=== PATIENT | male | born 1995 | race Hispanic/Latino ===

== ENCOUNTER 2020-03-06 23:30 | Inpatient (IN) | payer OTHER ==
[~2020-03-06] VITALS: Ht 172.7 cm; Wt 63.1 kg
[2020-03-07] VITALS (11 sets, daily range): BP systolic 118–150; BP diastolic 57–102
--- NOTE | 2020-03-07 00:14 | ER.PDOC ---
General Chief Complaint: Requesting Medical Care Stated Complaint: DIFF BREATHING Time seen by MD: 23:50 Source: patient History of Present Illness Initial Comments two days of body aches with chest pain and feels short of breath, also has nausea and diarrhea. no known covid exposure, chest pain central chest and increased with movement. patient has no hx of dvt or pe or long trips or calf pain or swelling. no back or abd pain, no migratory pain no tearing or ripping pain. Timing/Duration: other Severity/Quality: moderate Radiation: no radiation Activities at Onset: none Prior CP/Workup: No Prior Chest Pain Nitro Today/Relief: No Nitro Taken Today Aspirin Today: No Aspirin Today Associated Symptoms: nausea/vomiting, other Constitutional: denies chills, denies fever Respiratory: shortness of breath Cardiovascular: chest pain; denies palpitations, denies syncope Gastrointestinal: denies abdominal pain; diarrhea, nausea Genitourinary: denies dysuria, denies flank pain Musculoskeletal: denies back pain, denies neck pain Skin: denies rash Psychiatric/Neurological: denies headache Physical Exam General Appearance: No Apparent Distress, WD/WN HEENT: PERRL/EOMI Neck: Non-Tender Respiratory: chest non-tender, lungs clear Cardiovascular: Normal Peripheral Pulses, Regular Rate, Rhythm Gastrointestinal: Non Tender Extremities: Normal Range of Motion, Non-Tender, Normal Inspection, No Pedal Edema Neurologic/Psychiatric: nurse emergency II-XII NML as Tested, No Motor/Sensory Deficits, Alert, Normal Mood/Affect, Oriented x 3 Skin: Normal Color Comments positive chest wall pain to palpation reproduced complaint. no calf pain or swelling. perc negative. Progress Progress discussed case with dr millard leather tooler for admission and dr marte for admission at 0224 Consult/PCP Time Consult/PCP Called: 02:22 Consult/PCP: freeman Reason/Comments: elevated troponin Departure Time of Disposition: 02:27 Disposition: 09 ADMITTED INPATIENT Impression: Primary Impression: Elevated troponin Condition: Critical Referrals: PCP,UNKNOWN (PCP) PRIMARY CARE PROVIDER Duration or Time Spent with Pa: ISRRAEL PEMBERTON MD Mar 07, 2020 00:14
--- NOTE | 2020-03-07 00:23 | PCM.EKG ---
[facility] Test Date: 2020-03-07 Test Time: 00:08:06 Pat Name: GAL NORMAN Department: Room: Gender: M Booth Manager: PRISCA : 1995 Requested By: ABDI ARTEAGA Order Number: [id number] Reading MD: Abdi Arteaga Measurements Intervals [place] Rate: 68 P: 28 FL: 152 QRS: -79 QRSD: 96 T: 54 QT: 385 QTc: 410 Interpretive Statements Sinus rhythm Left axis deviation No previous ECG available for comparison Electronically Signed On 03-07-2020 0:24:57 CDT by Abdi Arteaga Please click the below link to view image of tracing.
[2020-03-07] MEDS ORDERED: TORADOL IV ONE (00:30)
[2020-03-07 00:45] LABS: BASOPHIL % 0.4 % (0.0-0.2); EOSINOPHIL # 0.1 10^3/uL (0.0-0.2); EOSINOPHIL % 1.2 % (0.0-5.0); LYMPHOCYTES # 1.22 10^3/uL1 (1.0-4.8); LYMPHOCYTES % 16.5 % (24.0-44.0); MEAN CORP HGB 29.5 pg (26-34); MONOCYTES # 1.1 10^3/uL (0.3-0.8); MONOCYTES % 14.6 % (5.0-12.0); NEUTROPHILS % 66.9 % (41.0-85.0); PLATELET COUNT 200 10^3/uL (150-400); RED CELL DISTRIBUTION WIDTH 11.8 % (11.5-14.5)
--- NOTE | 2020-03-07 01:02 | DIREP ---
PROCEDURE:CHEST 1 VIEW COMPARISON:None. INDICATIONS:chest pain FINDINGS: LUNGS/PLEURA:No significant pulmonary parenchymal abnormalities. No effusions. VASCULATURE:Normal. Unremarkable pulmonary vasculature. CARDIAC:Normal. No cardiac silhouette abnormality or cardiomegaly. MEDIASTINUM:Normal. No visible mass or adenopathy. BONES:Normal. No fracture or visible bony lesion. OTHER:Negative. CONCLUSION:Normal examination. Dictated by: Brandon Cummings MD on 03/07/2020 at 00:59 AM
[2020-03-07 01:09] LABS: CALCIUM 9.4 mg/dL (8.4-10.5); CARBON DIOXIDE 26.8 mmol/L (20.0-32)
[2020-03-07] MEDS ORDERED: ASPIRIN PO STA (01:14)
[2020-03-07] MEDS ORDERED: NITRO-BID TD STA (01:14)
[2020-03-07] MEDS ORDERED: ASPIRIN ONE (01:28)
[2020-03-07] MEDS ORDERED: NITRO-BID TD ONE (01:28)
--- NOTE | 2020-03-07 02:04 | DIREP ---
PROCEDURE:CTA - CHEST (NON CORONARY) COMPARISON:None. INDICATIONS:chest pain with elevated troponin TECHNIQUE:After obtaining the patient's consent, CTA images were obtained without and with non-ionic intravenous contrast material. Multi-planar MIP/3-D images were created to optimize visualization of vascular anatomy. FINDINGS: VASCULATURE:Normal. No pulmonary emboli THORACIC AORTA:Normal. No aneurysm. No dissection LUNGS:Normal. Central airways are patent. Ground-glass opacities to indicate active pneumonitis are not identified MEDIASTINUM/CAITLYN:Normal. CARDIAC:Normal. No pericardial fluid. PLEURA:Normal. No effusion. No pneumothorax CHEST WALL:Normal. LIMITED ABDOMEN:Normal. BONES:Normal. OTHER:Normal. CONCLUSION:Normal examination Dictated by: Brandon Cummings MD on 03/07/2020 at 01:59 AM
--- NOTE | 2020-03-07 02:16 | NUR ---
ABBI MUÑOZ ON THE PHONE WITH DR. GO AT THIS TIME.
--- NOTE | 2020-03-07 02:23 | NUR ---
MAYA MUÑOZ ON PHONE WITH DR. TREJO AT THIS TIME.
[2020-03-07] MEDS ORDERED: HEPARIN-D5W 20,000 UNIT/500 ML 500 ML IV ONE (02:38)
--- NOTE | 2020-03-07 03:50 | NUR ---
HEPARIN DRIP PER DR GO NO BOLUS AND START AT 1000UNITS/HR, 25ML/HR. ORDER ENTERED IN [facility] PER DR NEWTON'S PROTOCOL
--- NOTE | 2020-03-07 03:50 | NUR ---
HEPARIN HEPARIN STARTED PER DR LOAIZA PROTOCOL. HEPARIN INFUSING @ 1000UNITS/HR.
--- NOTE | 2020-03-07 04:04 | NUR ---
TRANSPORTED PT TO [facility] VIA W/C, REPORT GIVEN TO Frankie SHETH RN. RELINQUISHED CARE.
--- NOTE | 2020-03-07 04:10 | NUR ---
Pt brought to unit via wc. Heparin infusing via pump at 500units/hr. Rechecked protocol and adjusted to 1000units with Desire GOLDBERG
--- NOTE | 2020-03-07 05:13 | NUR ---
Dr Templeton notified of no initial APTT done on pt. No order placed by ER prior to starting Heparin. Order received to draw APTT now and adjust Heparin per protocol.
[2020-03-07] MEDS: HEPARIN-D5W 20,000 UNIT/500 ML 500 ML IV SCH ×2 (05:19→21:01)
[2020-03-07 05:33] LABS: BASOPHIL % 0.5 % (0.0-0.2); EOSINOPHIL # 0.1 10^3/uL (0.0-0.2); EOSINOPHIL % 0.8 % (0.0-5.0); LYMPHOCYTES # 1.28 10^3/uL1 (1.0-4.8); LYMPHOCYTES % 20.9 % (24.0-44.0); MEAN CORP HGB 29.8 pg (26-34); MONOCYTES # 0.9 10^3/uL (0.3-0.8); MONOCYTES % 14.7 % (5.0-12.0); NEUTROPHIL # 3.8 10^3/uL (1.8-7.7); NEUTROPHILS % 62.8 % (41.0-85.0); PLATELET COUNT 187 10^3/uL (150-400); RED CELL DISTRIBUTION WIDTH 11.8 % (11.5-14.5)
--- NOTE | 2020-03-07 06:14 | NUR ---
APTT 34.4. Heparin increased to 1100 units/hr per protocol. Witnessed by myself and Christopher GOLDBERG
--- NOTE | 2020-03-07 08:00 | NUR ---
ELEVATED TROPININ PT TROPONIN 3.28 AT 0800. PHYSICIAN NOTIFIED AT THIS TIME.
--- NOTE | 2020-03-07 08:18 | PCM.HP ---
History of Present Illness Reason for Visit: Elevated troponin History of Present Illness 24-year-old man presented to the emergency room at midnight complaining of chest pain. He noticed it during the morning and it seemed to go away but came back later in the evening and was worse. When the pain became severe he came to the emergency room. He has some shortness of breath but reports no cough or fever. He describes the pain as like something heavy on his chest. He had no nausea and no diarrhea pheresis with the discomfort and he does not report any radiation. In the emergency room he underwent the cardiac testing and the EKG with a left axis deviation but the troponin elevated 1.6. The patient admitted for further diagnosis and testing as needed. Additionally the patient tells me that he has had diarrhea for 4 days. He has been having 10 or more stools per day. No blood in his stools and no associated nausea or vomiting or fever. It seems to be better with some Pepto-Bismol Past Medical History Cardiac: Other (No chronic medical problems) Past Surgical History: No pertinent hx Past Social History Drugs: None Travel Hx EBOLA RISK:Travel to/contact w: No Review of Systems Other 12 systems reviewed and negative except for HPI Allergies: Coded Allergies: No Known Drug Allergies (Verified Allergy, Unknown, 03/07/20) VTE VTE Risk Total Score: 0 VTE Risk Score VTE Risk: Score 0-1 = Low Risk (Aggressive mobilization; early ambulation; no VTE prophylaxis required) Score 2: Moderate Risk (Intermittent/Pneumatic Compression Device OR Lovenox/Heparin/Coumadin) Score 3-4: High Risk (Intermittent/Pneumatic Compression Device AND Lovenox/Heparin/Coumadin) Score > or =5: Highest Risk (Intermittent/Pneumatic Compression Device AND Lovenox/Heparin/Coumadin) VTE VTE Present on Admission: No Currently receiving anticoagul: Yes VTE Risk Total Score: 0 Exam Vital Signs Vital Signs Date Time Temp Pulse Resp B/P (MAP) Pulse Ox O2 Delivery O2 Flow Rate FiO2 03/07/20 05:05 98.2 80 18 124/79 (94) Room Air 03/07/20 02:33 96 General Appearance: Alert, Oriented X3, Cooperative HEENT: Atraumatic, PERRLA, EOMI, Mucous membr. moist/pink Respiratory: Clear to auscultation Cardiovascular: Regular rate, Normal S1, Normal S2, No murmurs Abdominal: Normal bowel sounds, Soft, No tenderness, No hepatospenomegaly Extremities: No clubbing, No cyanosis, No edema, Normal pulses, No tenderness/swelling Skin: No rash, No breakdown, Breakdown Neuro: Normal speech, Strength at 5/5 X4 ext, Normal tone, Sensation intact, Cranial nerves 3-12 NL Psych/Mental Status: Mental status NL, Mood NL Assessment/Plan Assessment/Plan Problems: (1) Chest pain Assessment & Plan: The patient will be on a legal assistant. Oxygen as needed. We will repeat the troponin. The patient started on heparin drip and cardiology consultation to be obtained. Obtain urine drug screen. ICD Code: R07.9 - Chest pain, unspecified SNOMED: 26175986 (2) Elevated troponin Assessment & Plan: On Heparin drip and get Cardiac consultation ICD Code: R79.89 - Other specified abnormal findings of blood chemistry SNOMED: 608774194, 293544056, [id number] (3) Diarrhea Assessment & Plan: Check for C diff; monitor for hypovolemia and keep fluids up. Treatment based on lab results. ICD Code: R19.7 - Diarrhea, unspecified SNOMED: 08040042 EDWARD TREJO MD Mar 07, 2020 08:18
--- NOTE | 2020-03-07 09:04 | PCM.EKG ---
[facility] Test Date: 2020-03-07 Test Time: 08:49:48 Pat Name: GAL NORMAN Department: Room: 303 A Gender: M Freight Breaker: HERMAN : 1995 Requested By: ENEIDA GO Order Number: [id number] Reading MD: Measurements Intervals [place] Rate: 71 P: 63 VT: 140 QRS: 0 QRSD: 98 T: 55 QT: 391 QTc: 425 Interpretive Statements Sinus rhythm No previous ECG available for comparison Please click the below link to view image of tracing.
--- NOTE | 2020-03-07 10:45 | NUR ---
DISCHARGE PLAN CM SPOKE WITH PT VIA INTERCOM D/T PUI STATUS CONCERNING DISCHARGE PLAN AND NEEDS. LIVES AT HOME WITH SIGNIFICANT OTHER. INDEPENDENT OF ADLS. VERBALLY DENIES NEEDS FOR DME OR SERVICES. PCP LIST PROVIDED AND CM CONTACT INFORMATION GIVEN TO SAW WAYNE TO GIVE TO PT UPON NEXT ENTRANCE INTO ROOM. DISCHARGE GOAL IS TO DC HOME AND CONTINUE SELF CARE. CM WILL CONTINUE TO FOLLOW FOR DC NEEDS.
[2020-03-07] MEDS: MORPHINE SULFATE IV PRN (11:00)
--- NOTE | 2020-03-07 11:15 | NUR ---
Heparin Correction to IV spreadsheet. Heparin infusing at 30ml/hr, 1200 units.
[2020-03-07] MEDS ORDERED: NITROSTAT SL ONE (12:31)
[2020-03-07] MEDS: NITROSTAT SL PRN (13:02)
--- NOTE | 2020-03-07 13:33 | PCM.ECHO ---
APPROVED REPORT EXAM: Comprehensive 2D, Doppler, and color-flow Echocardiogram. Patient Location: IN-PATIENT Rhythm: NSR Indications Elevated Troponin 2D Dimensions LVOT Diameter 2.20 (1.8-2.4cm) LVEF(%) 48.86 (>50%) M-Mode Dimensions RVDd 1.90 (2.1-3.2cm) Left Atrium(MM) 2.50 (2.5-4.0cm) IVSd 0.80 (0.7-1.1cm) Aortic Root 2.60 (2.2-3.7cm) LVDd 4.60 (4.0-5.6cm) Aortic Cusp Exc 1.90 (1.5-2.0cm) PWd 0.55 (0.7-1.1cm) MV EPSS 0.48 (<0.5cm) IVSs 1.40 cm FS (%) 33.30 % LVDs 3.05 (2.0-3.8cm) ESV(Teich) 37.73 ml PWs 1.25 cm LVEF(%) 62.03 (>50%) Volumes Biplane 2D LV Volumes Biplane 2D LA Volumes LVEDv A4C 87.52 mL LA ESV Index LVESv A4C 44.76 mL Aortic Valve AoV Peak Delano. 1.00 m/s AoV VTI 18.80 cm AO Peak GR. 4.15 mmHg AO Mean GR. 2.15 mmHg LVOT VTI 17.28 cm LVOT Peak Delano. 0.73 m/s RAJ(VTI)/BSA 3.48 cm2/m2 RAJ (VTI) 3.48 cm2 Mitral Valve MV E Velocity 0.70m/s MR Peak Gr. 6.50mmHg MV A Velocity 0.50m/s TDI Lateral E' P. V 0.10m/s Medial E' P. V 0.10m/s Pulmonary Valve PV Peak Velocity 0.45m/s PV Peak Grad. 0.95mmHg RVOT VTI 9.88cm Tricuspid Valve TR P. Velocity 1.95m/s RAP ESTIMATE 10.00mmHg TR Peak Gr. 15.75mmHg RVSP 25.75mmHg LEFT VENTRICLE The left ventricle is normal size. The left ventricular systolic function is normal. The left ventricular ejection fraction is within the normal range. There is normal left ventricular wall thickness. There is normal LV segmental wall motion. There is no ventricular septal defect visualized. No left ventricle thrombus noted on this study. LVEF is 60-65%. RIGHT VENTRICLE The right ventricle is normal size. The right ventricular systolic function is normal. There is normal right ventricular wall thickness. ATRIA The left atrium size is normal. The right atrium size is normal. The interatrial septum is intact with no evidence for an atrial septal defect. AORTIC VALVE The aortic valve is normal in structure. There is no aortic valvular stenosis. No aortic regurgitation is present. There is no aortic valvular vegetation. MITRAL VALVE The mitral valve is normal in structure. There is no mitral valve stenosis. Mild mitral regurgitation. There is no evidence of mitral valve vegetations. TRICUSPID VALVE The tricuspid valve is normal in structure. There is no tricuspid valve stenosis. Mild tricuspid regurgitation. There is no tricuspid valve vegetations. PULMONIC VALVE The pulmonary valve is normal in structure. There is no pulmonic valvular stenosis. There is no pulmonic valvular regurgitation. GREAT VESSELS The aortic root is normal in size. Pulmonary artery is not well visualized. Aortic arch is not well visualized. IVC is normal in size. PERICARDIUM There is no pericardial effusion. There is no pleural effusion. Other Information Study Quality: Fair <Conclusion> The left ventricular systolic function is normal. LVEF is 60-65%. Mild mitral regurgitation. Mild tricuspid regurgitation. Electronically signed by : ENEIDA GO. 03/07/2020 13:33:37
--- NOTE | 2020-03-07 16:00 | NUR ---
HEPARIN APTT 58.3. HEPARIN DRIP INCREASED TO 31.5 ML/HR, 1250 UNITS/HR. VERIFIED BY MYSELF AND Vidal GALLOWAY RN WILL CONTINUE TO MONITOR
[2020-03-07] MEDS ORDERED: TYLENOL PO PRN (18:30)
[2020-03-07] MEDS ORDERED: AMBIEN PO PRN (18:30)
[2020-03-07] MEDS ORDERED: ZOFRAN IV PRN (18:30)
--- NOTE | 2020-03-07 18:40 | CNH ---
DATE OF CONSULTATION: 03/07/2020 REASON FOR CONSULTATION: Elevated troponins. HISTORY OF PRESENT ILLNESS: This is a 24-year-old young male who presented to the Emergency Room last night with symptoms of generalized body aches with chest pain and feelings of shortness of breath, which started 2 days ago and has progressively gotten worse. He also admits to associated nausea and diarrhea, which he has been experiencing for the last few days. He describes substernal chest pain with no radiation. On presentation to the Emergency Room, EKG shows normal sinus rhythm, normal ECG. He was noted to have spilled troponins with initial troponin of 1.66, which has slowly trended up to 3.28. At this time, he however denies any chest pain. A 2D echo done revealed left ventricular ejection fraction of 60-65% with no evidence of wall motion abnormalities. He is currently on heparin drip. PAST MEDICAL HISTORY: Negative. PAST SURGICAL HISTORY: No pertinent history. ALLERGIES: He has no known drug allergies. MEDICATIONS: He takes at home, he is not currently on any medications. SOCIAL HISTORY: Denies illicit drug use, denies tobacco use, denies alcohol use. FAMILY HISTORY: Denies any family history of premature CAD or sudden cardiac . REVIEW OF SYSTEMS: As per HPI and as per previous records. All systems reviewed and negative for interval change. PHYSICAL EXAMINATION: VITAL SIGNS: Blood pressure is 124/79, respiratory rate is 18, pulse is 89, temperature 98.2, pulse ox is 96% on room air. GENERAL: He is in no apparent distress, alert and oriented x 3. HEENT: Normocephalic, atraumatic. Extraocular muscles intact. Pupils are equally round and reactive to light and accommodation. No evidence of thyromegaly. HEART: S1, S2. No gallops, murmurs, rubs, or clicks. LUNGS: Clear to auscultation bilaterally. No wheezing, rhonchi or rales. ABDOMEN: Soft, nontender, nondistended. Positive bowel sounds in all 4 quadrants. EXTREMITIES: No cyanosis, no clubbing, no edema, +2 pedal pulses palpable bilaterally. NEUROLOGIC: No neurological deficits. Sensation is intact. IMPRESSION: 1. Elevated troponins -- high suspicion for type 2 spill (doubt ACS). 2. Generalized body aches. 3. Persistent diarrhea. 4. Chest pain. RECOMMENDATIONS: This is a 24-year-old male who presented to the hospital with symptoms of chest discomfort with associated generalized body aches and persistent diarrhea, which he has been having for the last few days. Troponin is currently elevated at 3.28. He, however, denies any chest pain at this time. Given his symptomatology, he is at very high suspicion for COVID-19 coronavirus infection. He is currently on isolation as a PUI and COVID-19 coronavirus testing has been obtained. A 2D echo shows a left ventricular ejection fraction of 60-65% with no evidence of wall motion abnormalities. He is currently on heparin drip. I would await the results from the COVID-19 coronavirus testing. If his testing comes out negative, he will be set up for left heart catheterization to rule out CAD. However, given his high suspicion for COVID-19 exposure with prevailing symptomatology, I doubt ACS in this case. He does not have any risk factors for coronary artery disease. I would recommend keeping the patient as a PUI until coronavirus testing has resulted. Further recommendations will be made based on his overall clinical course. ENEIDA GO D.O. DR: [place]/kim JOB# [id number] HARJEET
--- NOTE | 2020-03-07 20:50 | NUR ---
HEPARIN APTT 53.0. HEPARIN DRIP INCREASED TO 33.75 ML/HR, 1350 UNITS/HR. VERIFIED BY MYSELF AND Galen ANGEL RN. NEW APTT ORDER PLACED FOR 00:50. WILL CONTINUE TO MONITOR
[2020-03-07] MEDS: PEPCID PO SCH (21:00)
[2020-03-08 00:44] VITALS: BP 113/72
--- NOTE | 2020-03-08 02:05 | NUR ---
HEPARIN APTT 64.4 HEPARIN DRIP INCREASED TO 35 ML/HR, 1400 UNITS/HR. VERIFIED BY MYSELF AND Galen ANGEL RN. NEW APTT ORDER PLACED FOR 0600. WILL CONTINUE TO MONITOR
[2020-03-08] MEDS: NITROSTAT SL PRN ×3 (05:49→17:39)
[2020-03-08 05:50] VITALS: BP 136/91
[2020-03-08 05:57] LABS: BASOPHIL % 0.7 % (0.0-0.2); EOSINOPHIL # 0.1 10^3/uL (0.0-0.2); EOSINOPHIL % 2.5 % (0.0-5.0); LYMPHOCYTES # 1.93 10^3/uL1 (1.0-4.8); LYMPHOCYTES % 34.8 % (24.0-44.0); MEAN CORP HGB 30.1 pg (26-34); MONOCYTES # 0.7 10^3/uL (0.3-0.8); MONOCYTES % 12.8 % (5.0-12.0); NEUTROPHIL # 2.7 10^3/uL (1.8-7.7); NEUTROPHILS % 48.8 % (41.0-85.0); PLATELET COUNT 184 10^3/uL (150-400); RED CELL DISTRIBUTION WIDTH 11.8 % (11.5-14.5)
--- NOTE | 2020-03-08 06:00 | PCM.EKG ---
[facility] Test Date: 2020-03-08 Test Time: 05:54:38 Pat Name: GAL NORMAN Department: Room: 303 A Gender: M Gallery Manager: VIRGILIO : 1995 Requested By: EDWARD TREJO Order Number: [id number] Reading MD: Measurements Intervals [place] Rate: 70 P: 51 UT: 151 QRS: -48 QRSD: 94 T: 70 QT: 393 QTc: 425 Interpretive Statements Sinus rhythm Left axis deviation Compared to ECG 03/07/2020 08:49:48 Left-axis deviation now present Please click the below link to view image of tracing.
--- NOTE | 2020-03-08 06:06 | NUR ---
RN CALLED STATED PT COMPLAINING OF CP, DID AN EKG. TGRAFA,GI TECHNICIAN
[2020-03-08] MEDS: MORPHINE SULFATE IV PRN (06:07)
--- NOTE | 2020-03-08 06:20 | NUR ---
HEPARIN APTT 94.8 HEPARIN DRIP DECREASED TO 30 ML/HR, 1200 UNITS/HR. VERIFIED BY MYSELF AND Galen ANGEL RN. NEW APTT ORDER PLACED FOR 619. WILL CONTINUE TO MONITOR
--- NOTE | 2020-03-08 06:23 | NUR ---
CHEST PAIN Called Doctor Flores and reported pt reporting "chest pain and pressure" to the chest. Denied feeling GI symptoms. Ordered protocol chest pain orders. STAT EKG completed and reported to Dr. Flores. Troponin levels collected and have not resulted at this time. Vitals stable and charted at this time. Morphine administered for pain and pain came down to a 2. No new orders at this time. Will continue to monitor.
[2020-03-08] MEDS: PEPCID PO SCH ×2 (08:05→21:32)
[2020-03-08 09:38] VITALS: BP 138/86
--- NOTE | 2020-03-08 10:28 | PRM.PN ---
Subjective Subjective Date: Mar 08, 2020 Time: 09:45 Subjective Minimal chest pain and no diarrhea today.He does not feel he having a fever and no abdominal pain VTE VTE Risk Total Score: 0 VTE Risk Score VTE Risk: Score 0-1 = Low Risk (Aggressive mobilization; early ambulation; no VTE prophylaxis required) Score 2: Moderate Risk (Intermittent/Pneumatic Compression Device OR Lovenox/Heparin/Coumadin) Score 3-4: High Risk (Intermittent/Pneumatic Compression Device AND Lovenox/Heparin/Coumadin) Score > or =5: Highest Risk (Intermittent/Pneumatic Compression Device AND Lovenox/Heparin/Coumadin) Review of Systems Cardiovascular: Chest Pain Musculoskeletal: other Other 12 systems reviewed and negative except above Allergies: Coded Allergies: No Known Drug Allergies (Verified Allergy, Unknown, 03/07/20) Objective Vitals and I/O Vital Sign - Last 24 Hours 03/07/20 03/07/20 03/07/20 03/07/20 10:40 11:23 12:36 13:01 Temp 97.8 98.3 Pulse 68 89 76 Resp 16 16 18 B/P (MAP) 118/68 (85) 139/79 (99) 148/70 (96) Pulse Ox 96 100 98 O2 Delivery Room Air Room Air Room Air Room Air 03/07/20 03/07/20 03/08/20 03/08/20 16:02 20:12 00:44 02:35 Temp 97.8 98.0 98.0 Pulse 73 92 70 Resp 16 16 16 18 B/P (MAP) 148/84 (105) 118/71 (87) 113/72 (86) Pulse Ox 100 100 100 O2 Delivery Room Air Room Air Room Air Room Air 03/08/20 03/08/20 03/08/20 03/08/20 02:36 05:50 09:38 10:01 Temp 98.2 98.2 Pulse 98 81 Resp 18 16 B/P (MAP) 136/91 (106) 138/86 (103) Pulse Ox 96 96 O2 Delivery Room Air Room Air Room Air Intake and Output 03/08/20 07:00 Intake Total 1073 ml Balance 1073 ml General: Alert, Oriented X3, Cooperative HEENT: Atraumatic, PERRLA, EOMI, Mucous membr. moist/pink Lungs: Clear to auscultation Heart: Regular rate, Normal S1, Normal S2, No murmurs Abdomen: Normal bowel sounds, Soft, No tenderness, No hepatospenomegaly Extremities: No clubbing, No cyanosis, No edema, Normal pulses, No tenderness/swelling Neuro: Normal speech, Strength at 5/5 X4 ext, Normal tone, Sensation intact, Cranial nerves 3-12 NL Psych/Mental Status: Mental status NL, Mood NL All Results(Lab/Rad) Laboratory Tests Test 03/07/20 15:07 03/07/20 20:10 03/08/20 00:43 03/08/20 05:45 Activated Partial Thromboplast Time 58.3 SEC 53.0 SEC 64.4 SEC 94.8 SEC White Blood Count 5.6 10^3/uL Red Blood Count 5.18 10^6/uL Hemoglobin 15.6 g/dL Hematocrit 44.7 % Mean Corpuscular Volume 86.3 fL Mean Corpuscular Hemoglobin 30.1 pg Mean Corpuscular Hemoglobin Concent 34.9 g/dL Red Cell Distribution Width 11.8 % Platelet Count 184 10^3/uL Mean Platelet Volume 11.2 fL Neutrophils (%) (Auto) 48.8 % Lymphocytes (%) (Auto) 34.8 % Monocytes (%) (Auto) 12.8 % Neutrophils # (Auto) 2.7 10^3/uL Lymphocytes # (Auto) 1.93 10^3/uL1 Monocytes # (Auto) 0.7 10^3/uL Absolute Immature Granulocyte (auto 0.02 10^3 u/L Absolute Eosinophils (auto) 0.1 10^3/uL Immature Granulocytes % 0.40 % Eosinophils % 2.5 % Basophils % 0.7 % Basophils # 0.0 10^3/uL Total Creatine Kinase 141 U/L Creatine Kinase MB 10.1 ng/mL Troponin I 2.82 ng/mL Current Medications Medications (Trade) Dose Ordered Sig/Татьяна Route PRN Reason Start Time Stop Time Status Last Admin Dose Admin Ketorolac Tromethamine (Toradol) 30 mg STAT ONCE IV 03/07/20 00:30 03/07/20 04:11 DC 03/07/20 00:25 Aspirin (Aspirin) 325 mg STAT STAT PO 03/07/20 01:14 03/07/20 01:17 DC 03/07/20 01:41 Nitroglycerin (Nitro-Bid) 1 gm STAT STAT TD 03/07/20 01:14 03/07/20 01:17 DC 03/07/20 01:41 Aspirin (Aspirin) 325 mg STK-MED ONCE .ROUTE 03/07/20 01:28 03/07/20 01:30 DC Nitroglycerin (Nitro-Bid) 1 gm STK-MED ONCE TD 03/07/20 01:28 03/07/20 01:30 DC Heparin Sodium/ Sodium Chloride 500 ml @ 0 mls/hr STAT ONCE IV 03/07/20 02:30 03/07/20 08:32 DC Heparin Sodium/ Dextrose 500 ml @ ud STK-MED ONCE IV 03/07/20 02:38 03/07/20 02:40 DC Heparin Sodium/ Dextrose 500 ml @ 0 mls/hr TITRATE IV 03/07/20 03:30 04/06/20 03:29 03/07/20 21:01 Morphine Sulfate (Morphine Sulfate) 2 mg Q4H PRN IV PAIN 4 - 6 03/07/20 11:00 04/06/20 10:59 03/08/20 06:07 Nitroglycerin (Nitrostat) 0.4 mg STK-MED ONCE SL 03/07/20 12:31 03/07/20 12:33 DC Nitroglycerin (Nitrostat) 0.4 mg PRN PRN SL CHEST PAIN 03/07/20 13:00 04/06/20 12:59 03/08/20 05:54 Zolpidem Tartrate (Ambien) 5 mg HS PRN PO INSOMNIA 03/07/20 18:30 04/06/20 18:29 Acetaminophen (Tylenol) 650 mg Q4H PRN PO PAIN 1 - 3 03/07/20 18:30 04/06/20 18:29 Ondansetron HCl (Zofran) 4 mg Q4H PRN IV NAUSEA / VOMITING 03/07/20 18:30 04/06/20 18:29 Famotidine (Pepcid) 20 mg BID PO 03/07/20 21:00 04/06/20 20:59 03/08/20 08:05 Course Sepsis Screening Results: Posi: NEGATIVE Sepsis Qualifier/Stage: NO DEFINITE RISK Duration or Total Time Spent w: 15 Vitals & review Data Vital Sign - Last 24 Hours 8/2103/07/20 03/07/20 03/07/20 10:40 11:23 12:36 13:01 Temp 97.8 98.3 Pulse 68 89 76 Resp 16 16 18 B/P (MAP) 118/68 (85) 139/79 (99) 148/70 (96) Pulse Ox 96 100 98 O2 Delivery Room Air Room Air Room Air Room Air 03/07/20 03/07/20 03/08/20 03/08/20 16:02 20:12 00:44 02:35 Temp 97.8 98.0 98.0 Pulse 73 92 70 Resp 16 16 16 18 B/P (MAP) 148/84 (105) 118/71 (87) 113/72 (86) Pulse Ox 100 100 100 O2 Delivery Room Air Room Air Room Air Room Air 03/08/20 03/08/20 03/08/20 03/08/20 02:36 05:50 09:38 10:01 Temp 98.2 98.2 Pulse 98 81 Resp 18 16 B/P (MAP) 136/91 (106) 138/86 (103) Pulse Ox 96 96 O2 Delivery Room Air Room Air Room Air Intake and Output 03/08/20 07:00 Intake Total 1073 ml Balance 1073 ml Laboratory Tests Test 03/07/20 00:30 03/07/20 05:28 03/07/20 08:00 03/07/20 10:11 White Blood Count 7.4 10^3/uL 6.1 10^3/uL Red Blood Count 5.52 10^6/uL 5.17 10^6/uL Hemoglobin 16.3 g/dL 15.4 g/dL Hematocrit 45.9 % 43.1 % Mean Corpuscular Volume 83.2 fL 83.4 fL Mean Corpuscular Hemoglobin 29.5 pg 29.8 pg Mean Corpuscular Hemoglobin Concent 35.5 g/dL 35.7 g/dL Red Cell Distribution Width 11.8 % 11.8 % Platelet Count 200 10^3/uL 187 10^3/uL Mean Platelet Volume 11.0 fL 11.0 fL Neutrophils (%) (Auto) 66.9 % 62.8 % Lymphocytes (%) (Auto) 16.5 % 20.9 % Monocytes (%) (Auto) 14.6 % 14.7 % Neutrophils # (Auto) 5.0 10^3/uL 3.8 10^3/uL Lymphocytes # (Auto) 1.22 10^3/uL1 1.28 10^3/uL1 Monocytes # (Auto) 1.1 10^3/uL 0.9 10^3/uL Absolute Immature Granulocyte (auto 0.03 10^3 u/L 0.02 10^3 u/L Absolute Eosinophils (auto) 0.1 10^3/uL 0.1 10^3/uL Immature Granulocytes % 0.40 % 0.30 % Eosinophils % 1.2 % 0.8 % Basophils % 0.4 % 0.5 % Basophils # 0.0 10^3/uL 0.0 10^3/uL Sodium Level 138 mmol/L Potassium Level 4.1 mmol/L Chloride Level 101.0 mmol/L Carbon Dioxide Level 26.8 mmol/L Anion Gap 14.3 Blood Urea Nitrogen 12 mg/dL Creatinine 1.14 mg/dL Estimated GFR () 97.2 Est GFR (CKD-EPI)(Non-Afr [place]) 80.3 BUN/Creatinine Ratio 10.0 Glucose Level 128 mg/dL Calcium Level 9.4 mg/dL Total Bilirubin 0.7 mg/dL Aspartate Amino Transf (AST/SGOT) 33 U/L Alanine Aminotransferase (ALT/SGPT) 29 U/L Alkaline Phosphatase 76 U/L Total Creatine Kinase 160 U/L Creatine Kinase MB 9.2 ng/mL Troponin I 1.66 ng/mL 3.28 ng/mL Pro-B-Type Natriuretic Peptide 226 pg/mL Total Protein 7.2 g/dL Albumin 4.2 g/dL Globulin 3.0 Influenza Type A Antigen NEGATIVE Influenza B Immunofluorescence NEGATIVE Group A Streptococcus Screen NEGATIVE Activated Partial Thromboplast Time 34.4 SEC 50.5 SEC Test 03/07/20 15:07 03/07/20 20:10 03/08/20 00:43 03/08/20 05:45 Activated Partial Thromboplast Time 58.3 SEC 53.0 SEC 64.4 SEC 94.8 SEC White Blood Count 5.6 10^3/uL Red Blood Count 5.18 10^6/uL Hemoglobin 15.6 g/dL Hematocrit 44.7 % Mean Corpuscular Volume 86.3 fL Mean Corpuscular Hemoglobin 30.1 pg Mean Corpuscular Hemoglobin Concent 34.9 g/dL Red Cell Distribution Width 11.8 % Platelet Count 184 10^3/uL Mean Platelet Volume 11.2 fL Neutrophils (%) (Auto) 48.8 % Lymphocytes (%) (Auto) 34.8 % Monocytes (%) (Auto) 12.8 % Neutrophils # (Auto) 2.7 10^3/uL Lymphocytes # (Auto) 1.93 10^3/uL1 Monocytes # (Auto) 0.7 10^3/uL Absolute Immature Granulocyte (auto 0.02 10^3 u/L Absolute Eosinophils (auto) 0.1 10^3/uL Immature Granulocytes % 0.40 % Eosinophils % 2.5 % Basophils % 0.7 % Basophils # 0.0 10^3/uL Total Creatine Kinase 141 U/L Creatine Kinase MB 10.1 ng/mL Troponin I 2.82 ng/mL Current Medications Medications (Trade) Dose Ordered Sig/Татьяна PRN Reason Start Time Stop Time Status Last Admin Acetaminophen (Tylenol) 650 mg Q4H PRN PAIN 1 - 3 03/07/20 18:30 04/06/20 18:29 Famotidine (Pepcid) 20 mg BID 03/07/20 21:00 04/06/20 20:59 03/08/20 08:05 Heparin Sodium/ Dextrose 500 ml @ 0 mls/hr TITRATE 03/07/20 03:30 04/06/20 03:29 03/07/20 21:01 Morphine Sulfate (Morphine Sulfate) 2 mg Q4H PRN PAIN 4 - 6 03/07/20 11:00 04/06/20 10:59 03/08/20 06:07 Nitroglycerin (Nitrostat) 0.4 mg PRN PRN CHEST PAIN 03/07/20 13:00 04/06/20 12:59 03/08/20 05:54 Ondansetron HCl (Zofran) 4 mg Q4H PRN NAUSEA / VOMITING 03/07/20 18:30 04/06/20 18:29 Zolpidem Tartrate (Ambien) 5 mg HS PRN INSOMNIA 03/07/20 18:30 04/06/20 18:29 LEVEL 1 SEPSIS INFECTION CRITE: None/Not assessed O2 Sat by Pulse Oximetry: 96 Assessment/Plan Assessment/Plan Problems: (1) Chest pain Assessment & Plan: Improved with pain medication. He have been on the heparin drip. He has no oxygen requirement. No significant EKG changes. ICD Code: R07.9 - Chest pain, unspecified SNOMED: 91668130 (2) Elevated troponin Assessment & Plan: Remain on heparin drip. He is missing the cardiology and the echocardiogram unremarkable. Clinical impression at this time is that this is secondary to COVID-19 infection. Will await results of the coronavirus 19 testing. Continue current care for now ICD Code: R79.89 - Other specified abnormal findings of blood chemistry SNOMED: 591251858, [id number], [id number] (3) Diarrhea Assessment & Plan: Diarrhea improved. Has had some IV fluids. ICD Code: R19.7 - Diarrhea, unspecified SNOMED: 73283881 EDWARD TREJO MD Mar 08, 2020 10:28
--- NOTE | 2020-03-08 11:00 | NUR ---
HEPARIN APTT WITHIN THERAPEUTIC RANGE OF 73.5 AT THIS TIME. NO CHANGE TO HEPARIN DRIP. WILL CONTINUE TO MONITOR.
--- NOTE | 2020-03-08 11:10 | NUR ---
HEPARIN APTT ORDERED PER PROTOCOL FOR 1500, NO CHANGES MADE TO HEPARIN DRIP DUE TO APTT IN THERAPEUTIC RANGE. WILL CONT TO MONITOR.
[2020-03-08 11:50] VITALS: BP 112/65
[2020-03-08] MEDS: HEPARIN-D5W 20,000 UNIT/500 ML 500 ML IV SCH (12:05)
--- NOTE | 2020-03-08 13:25 | PRM.PN ---
Subjective Subjective Date: Mar 08, 2020 Time: 13:19 Subjective Patient resting comfortably No chest pain/SOB/palpitations COVID-19 test pending On heparin gtt Troponin trending down Review of Systems Constitutional: No: Fever, Chills, Sweats, Weakness, Malaise, Other Eyes: No: Pain, Vision change, Conjunctivae inflammation, Eyelid inflammation, Other, Redness ENT: No: Ear pain, Ear discharge, Nose pain, Nose discharge, Nose congestion, Mouth pain, Mouth swelling, Throat pain, Throat swelling, Other Respiratory: No: Cough, Dry, Shortness of breath, SOB with excertion, Wheezing, Hemoptysis, Pleuritic Pain, Sputum, Wheezing, Other Cardiovascular: No: Chest Pain, Palpitations, Orthopnea, Paroxysmal Noc. Dyspnea, Edema, Lt Headedness, Other Gastrointestinal: No: Nausea, Vomiting, Abdominal Pain, Diarrhea, Constipation, Melena, Hematochezia, Other Genitourinary: No Dysuria, No Frequency, No Incontinence, No Hematuria, No Retention, No Other Musculoskeletal: other Neurological: No: Weakness, Numbness, Incoordination, Change in speech, Confusion, Seizures, Other Allergies: Coded Allergies: No Known Drug Allergies (Verified Allergy, Unknown, 03/07/20) Objective Vitals and I/O Vital Sign - Last 24 Hours 03/07/20 03/07/20 03/08/20 03/08/20 16:02 20:12 00:44 02:35 Temp 97.8 98.0 98.0 Pulse 73 92 70 Resp 16 16 16 18 B/P (MAP) 148/84 (105) 118/71 (87) 113/72 (86) Pulse Ox 100 100 100 O2 Delivery Room Air Room Air Room Air Room Air 03/08/20 03/08/20 03/08/20 03/08/20 02:36 05:50 09:38 10:01 Temp 98.2 98.2 Pulse 98 81 Resp 18 16 B/P (MAP) 136/91 (106) 138/86 (103) Pulse Ox 96 96 O2 Delivery Room Air Room Air Room Air 03/08/20 11:50 Temp 98.3 Pulse 70 Resp 18 B/P (MAP) 112/65 (81) Pulse Ox 100 O2 Delivery Room Air Intake and Output 03/08/20 07:00 Intake Total 1073 ml Balance 1073 ml General: Alert, Oriented X3, Cooperative HEENT: Atraumatic, PERRLA, EOMI, Mucous membr. moist/pink Lungs: Clear to auscultation Heart: Regular rate, Normal S1, Normal S2, No murmurs Abdomen: Normal bowel sounds, Soft, No tenderness, No hepatospenomegaly Extremities: No clubbing, No cyanosis, No edema, Normal pulses, No tenderness/swelling Neuro: Normal speech, Strength at 5/5 X4 ext, Normal tone, Sensation intact Psych/Mental Status: Mental status NL All Results(Lab/Rad) Laboratory Tests Test 03/07/20 15:07 03/07/20 20:10 03/08/20 00:43 03/08/20 05:45 Activated Partial Thromboplast Time 58.3 SEC 53.0 SEC 64.4 SEC 94.8 SEC White Blood Count 5.6 10^3/uL Red Blood Count 5.18 10^6/uL Hemoglobin 15.6 g/dL Hematocrit 44.7 % Mean Corpuscular Volume 86.3 fL Mean Corpuscular Hemoglobin 30.1 pg Mean Corpuscular Hemoglobin Concent 34.9 g/dL Red Cell Distribution Width 11.8 % Platelet Count 184 10^3/uL Mean Platelet Volume 11.2 fL Neutrophils (%) (Auto) 48.8 % Lymphocytes (%) (Auto) 34.8 % Monocytes (%) (Auto) 12.8 % Neutrophils # (Auto) 2.7 10^3/uL Lymphocytes # (Auto) 1.93 10^3/uL1 Monocytes # (Auto) 0.7 10^3/uL Absolute Immature Granulocyte (auto 0.02 10^3 u/L Absolute Eosinophils (auto) 0.1 10^3/uL Immature Granulocytes % 0.40 % Eosinophils % 2.5 % Basophils % 0.7 % Basophils # 0.0 10^3/uL Total Creatine Kinase 141 U/L Creatine Kinase MB 10.1 ng/mL Troponin I 2.82 ng/mL Current Medications Medications (Trade) Dose Ordered Sig/Татьяна Route PRN Reason Start Time Stop Time Status Last Admin Dose Admin Ketorolac Tromethamine (Toradol) 30 mg STAT ONCE IV 03/07/20 00:30 03/07/20 04:11 DC 03/07/20 00:25 Aspirin (Aspirin) 325 mg STAT STAT PO 03/07/20 01:14 03/07/20 01:17 DC 03/07/20 01:41 Nitroglycerin (Nitro-Bid) 1 gm STAT STAT TD 03/07/20 01:14 03/07/20 01:17 DC 03/07/20 01:41 Aspirin (Aspirin) 325 mg STK-MED ONCE .ROUTE 03/07/20 01:28 03/07/20 01:30 DC Nitroglycerin (Nitro-Bid) 1 gm STK-MED ONCE TD 03/07/20 01:28 03/07/20 01:30 DC Heparin Sodium/ Sodium Chloride 500 ml @ 0 mls/hr STAT ONCE IV 03/07/20 02:30 03/07/20 08:32 DC Heparin Sodium/ Dextrose 500 ml @ ud STK-MED ONCE IV 03/07/20 02:38 03/07/20 02:40 DC Heparin Sodium/ Dextrose 500 ml @ 0 mls/hr TITRATE IV 03/07/20 03:30 04/06/20 03:29 03/07/20 21:01 Morphine Sulfate (Morphine Sulfate) 2 mg Q4H PRN IV PAIN 4 - 6 03/07/20 11:00 04/06/20 10:59 03/08/20 06:07 Nitroglycerin (Nitrostat) 0.4 mg STK-MED ONCE SL 03/07/20 12:31 03/07/20 12:33 DC Nitroglycerin (Nitrostat) 0.4 mg PRN PRN SL CHEST PAIN 03/07/20 13:00 04/06/20 12:59 03/08/20 05:54 Zolpidem Tartrate (Ambien) 5 mg HS PRN PO INSOMNIA 03/07/20 18:30 04/06/20 18:29 Acetaminophen (Tylenol) 650 mg Q4H PRN PO PAIN 1 - 3 03/07/20 18:30 04/06/20 18:29 Ondansetron HCl (Zofran) 4 mg Q4H PRN IV NAUSEA / VOMITING 03/07/20 18:30 04/06/20 18:29 Famotidine (Pepcid) 20 mg BID PO 03/07/20 21:00 04/06/20 20:59 03/08/20 08:05 Assessment/Plan Assessment/Plan Assessment/Plan 1. Elevated troponins -- high suspicion for type 2 spill (doubt ACS). 2. Generalized body aches. 3. Persistent diarrhea. 4. Chest pain Plan Continue heparin gtt Awaiting COVID-19 test result LVEF 60-65% on echo with no evidence of wall motion abnormalities Troponins trending down ESR/CRP--negative No active chest pain at this time NSR on tele If COVID-19 test negative, will pursue [facility] ENEIDA GO DO Mar 08, 2020 13:25
[2020-03-08 16:10] VITALS: BP 118/65
--- NOTE | 2020-03-08 17:15 | NUR ---
STAT EKG PT COMPLAINT OF CHEST PAIN, STAT EKG ORDERED PER PROTOCOL. DR GO NOTIFIED, NO NEW ORDERS RECEIVED.
--- NOTE | 2020-03-08 17:15 | PCM.EKG ---
[facility] Test Date: 2020-03-08 Test Time: 17:11:00 Pat Name: GAL NORMAN Department: Room: 303 A Gender: M Blender Operator: HERMAN : 1995 Requested By: ENEIDA GO Order Number: [id number] Reading MD: Measurements Intervals [place] Rate: 76 P: 62 ME: 145 QRS: -88 QRSD: 94 T: 64 QT: 374 QTc: 421 Interpretive Statements Sinus rhythm S1,S2,S3 pattern RSR' in V1 or V2, probably normal variant ST elev, probable normal early repol pattern Compared to ECG 03/08/2020 05:54:38 RSR' in V1 or V2 now present ST (T wave) deviation now present Left-axis deviation no longer present Please click the below link to view image of tracing.
[2020-03-08 21:30] VITALS: BP 128/76
[2020-03-09 01:01] VITALS: BP 109/72
[2020-03-09 03:04] LABS: BASOPHIL % 0.7 % (0.0-0.2); EOSINOPHIL # 0.2 10^3/uL (0.0-0.2); EOSINOPHIL % 3.3 % (0.0-5.0); LYMPHOCYTES # 2.08 10^3/uL1 (1.0-4.8); LYMPHOCYTES % 35.9 % (24.0-44.0); MEAN CORP HGB 29.8 pg (26-34); MONOCYTES # 0.7 10^3/uL (0.3-0.8); MONOCYTES % 12.3 % (5.0-12.0); NEUTROPHIL # 2.7 10^3/uL (1.8-7.7); NEUTROPHILS % 46.8 % (41.0-85.0); PLATELET COUNT 216 10^3/uL (150-400); RED CELL DISTRIBUTION WIDTH 11.7 % (11.5-14.5)
[2020-03-09] MEDS: HEPARIN-D5W 20,000 UNIT/500 ML 500 ML IV SCH (03:37)
--- NOTE | 2020-03-09 03:38 | NUR ---
HEPARIN APTT 75.2 PROTOCOL STATES 65-75 IS THERAPEUTIC NEXT RANGE WILL BE 76-85 LEFT DRIP RUNNING AT 30ML/HR
[2020-03-09 04:37] VITALS: BP 107/62
[2020-03-09 08:22] VITALS: BP 122/65
[2020-03-09] MEDS: PEPCID PO SCH ×2 (08:22→21:43)
[2020-03-09 11:38] VITALS: BP 140/78
--- NOTE | 2020-03-09 14:31 | PRM.PN ---
Subjective Subjective Date: Mar 09, 2020 Time: 14:26 Subjective Patient report chest pain much less than at time of admission. Diarrhea has not restarted. Complaining of hungry with no other complaints VTE VTE Risk Total Score: 0 VTE Risk Score VTE Risk: Score 0-1 = Low Risk (Aggressive mobilization; early ambulation; no VTE prophylaxis required) Score 2: Moderate Risk (Intermittent/Pneumatic Compression Device OR Lovenox/Heparin/Coumadin) Score 3-4: High Risk (Intermittent/Pneumatic Compression Device AND Lovenox/Heparin/Coumadin) Score > or =5: Highest Risk (Intermittent/Pneumatic Compression Device AND Lovenox/Heparin/Coumadin) Review of Systems Constitutional: No: Fever, Chills, Sweats, Weakness, Malaise, Other Eyes: No: Pain, Vision change, Conjunctivae inflammation, Eyelid inflammation, Other, Redness ENT: No: Ear pain, Ear discharge, Nose pain, Nose discharge, Nose congestion, Mouth pain, Mouth swelling, Throat pain, Throat swelling, Other Respiratory: No: Cough, Dry, Shortness of breath, SOB with excertion, Wheezing, Hemoptysis, Pleuritic Pain, Sputum, Wheezing, Other Cardiovascular: No: Chest Pain, Palpitations, Orthopnea, Paroxysmal Noc. Dyspnea, Edema, Lt Headedness, Other Gastrointestinal: No: Nausea, Vomiting, Abdominal Pain, Diarrhea, Constipation, Melena, Hematochezia, Other Genitourinary: No Dysuria, No Frequency, No Incontinence, No Hematuria, No Retention, No Other Musculoskeletal: other Neurological: No: Weakness, Numbness, Incoordination, Change in speech, Confusion, Seizures, Other Allergies: Coded Allergies: No Known Drug Allergies (Verified Allergy, Unknown, 03/07/20) Objective Vitals and I/O Vital Sign - Last 24 Hours 03/08/20 03/08/20 03/08/20 03/09/20 16:10 21:30 21:48 01:01 Temp 97.7 97.9 97.3 Pulse 71 74 74 Resp 16 18 18 B/P (MAP) 118/65 (82) 128/76 (93) 109/72 (84) Pulse Ox 96 97 98 O2 Delivery Room Air Room Air Room Air Room Air 03/09/20 03/09/20 03/09/20 03/09/20 01:33 04:37 08:22 08:24 Temp 97.5 98.1 Pulse 88 61 Resp 18 18 17 B/P (MAP) 107/62 (77) 122/65 (84) Pulse Ox 97 99 O2 Delivery Room Air Room Air Room Air Room Air 03/09/20 03/09/20 11:38 12:55 Temp 97.7 Pulse 85 Resp 18 18 B/P (MAP) 140/78 (98) Pulse Ox 99 O2 Delivery Room Air Room Air Intake and Output 03/09/20 07:00 Intake Total 950 ml Output Total 650 ml Balance 300 ml General: Alert, Oriented X3, Cooperative HEENT: Atraumatic, PERRLA, EOMI, Mucous membr. moist/pink Lungs: Clear to auscultation Heart: Regular rate, Normal S1, Normal S2, No murmurs Abdomen: Normal bowel sounds, Soft, No tenderness, No hepatospenomegaly Extremities: No clubbing, No cyanosis, No edema, Normal pulses, No tenderness/swelling Neuro: Normal speech, Strength at 5/5 X4 ext, Normal tone, Sensation intact Psych/Mental Status: Mental status NL All Results(Lab/Rad) Laboratory Tests Test 03/07/20 15:07 03/07/20 20:10 03/08/20 00:43 03/08/20 05:45 Activated Partial Thromboplast Time 58.3 SEC 53.0 SEC 64.4 SEC 94.8 SEC White Blood Count 5.6 10^3/uL Red Blood Count 5.18 10^6/uL Hemoglobin 15.6 g/dL Hematocrit 44.7 % Mean Corpuscular Volume 86.3 fL Mean Corpuscular Hemoglobin 30.1 pg Mean Corpuscular Hemoglobin Concent 34.9 g/dL Red Cell Distribution Width 11.8 % Platelet Count 184 10^3/uL Mean Platelet Volume 11.2 fL Neutrophils (%) (Auto) 48.8 % Lymphocytes (%) (Auto) 34.8 % Monocytes (%) (Auto) 12.8 % Neutrophils # (Auto) 2.7 10^3/uL Lymphocytes # (Auto) 1.93 10^3/uL1 Monocytes # (Auto) 0.7 10^3/uL Absolute Immature Granulocyte (auto 0.02 10^3 u/L Absolute Eosinophils (auto) 0.1 10^3/uL Immature Granulocytes % 0.40 % Eosinophils % 2.5 % Basophils % 0.7 % Basophils # 0.0 10^3/uL Total Creatine Kinase 141 U/L Creatine Kinase MB 10.1 ng/mL Troponin I 2.82 ng/mL Current Medications Medications (Trade) Dose Ordered Sig/Татьяна Route PRN Reason Start Time Stop Time Status Last Admin Dose Admin Ketorolac Tromethamine (Toradol) 30 mg STAT ONCE IV 03/07/20 00:30 03/07/20 04:11 DC 03/07/20 00:25 Aspirin (Aspirin) 325 mg STAT STAT PO 03/07/20 01:14 03/07/20 01:17 DC 03/07/20 01:41 Nitroglycerin (Nitro-Bid) 1 gm STAT STAT TD 03/07/20 01:14 03/07/20 01:17 DC 03/07/20 01:41 Aspirin (Aspirin) 325 mg STK-MED ONCE .ROUTE 03/07/20 01:28 03/07/20 01:30 DC Nitroglycerin (Nitro-Bid) 1 gm STK-MED ONCE TD 03/07/20 01:28 03/07/20 01:30 DC Heparin Sodium/ Sodium Chloride 500 ml @ 0 mls/hr STAT ONCE IV 03/07/20 02:30 03/07/20 08:32 DC Heparin Sodium/ Dextrose 500 ml @ ud STK-MED ONCE IV 03/07/20 02:38 03/07/20 02:40 DC Heparin Sodium/ Dextrose 500 ml @ 0 mls/hr TITRATE IV 03/07/20 03:30 04/06/20 03:29 03/07/20 21:01 Morphine Sulfate (Morphine Sulfate) 2 mg Q4H PRN IV PAIN 4 - 6 03/07/20 11:00 04/06/20 10:59 03/08/20 06:07 Nitroglycerin (Nitrostat) 0.4 mg STK-MED ONCE SL 03/07/20 12:31 03/07/20 12:33 DC Nitroglycerin (Nitrostat) 0.4 mg PRN PRN SL CHEST PAIN 03/07/20 13:00 04/06/20 12:59 03/08/20 05:54 Zolpidem Tartrate (Ambien) 5 mg HS PRN PO INSOMNIA 03/07/20 18:30 04/06/20 18:29 Acetaminophen (Tylenol) 650 mg Q4H PRN PO PAIN 1 - 3 03/07/20 18:30 04/06/20 18:29 Ondansetron HCl (Zofran) 4 mg Q4H PRN IV NAUSEA / VOMITING 03/07/20 18:30 04/06/20 18:29 Famotidine (Pepcid) 20 mg BID PO 03/07/20 21:00 04/06/20 20:59 03/08/20 08:05 Course Sepsis Screening Results: Posi: NEGATIVE Sepsis Qualifier/Stage: NO DEFINITE RISK Duration or Total Time Spent w: 15 Vitals & review Data Vital Sign - Last 24 Hours 03/07/20 03/07/20 03/07/20 03/07/20 10:40 11:23 12:36 13:01 Temp 97.8 98.3 Pulse 68 89 76 Resp 16 16 18 B/P (MAP) 118/68 (85) 139/79 (99) 148/70 (96) Pulse Ox 96 100 98 O2 Delivery Room Air Room Air Room Air Room Air 03/07/20 03/07/20 03/08/20 03/08/20 16:02 20:12 00:44 02:35 Temp 97.8 98.0 98.0 Pulse 73 92 70 Resp 16 16 16 18 B/P (MAP) 148/84 (105) 118/71 (87) 113/72 (86) Pulse Ox 100 100 100 O2 Delivery Room Air Room Air Room Air Room Air 03/08/20 03/08/20 03/08/20 03/08/20 02:36 05:50 09:38 10:01 Temp 98.2 98.2 Pulse 98 81 Resp 18 16 B/P (MAP) 136/91 (106) 138/86 (103) Pulse Ox 96 96 O2 Delivery Room Air Room Air Room Air Intake and Output 03/08/20 07:00 Intake Total 1073 ml Balance 1073 ml Laboratory Tests Test 03/07/20 00:30 03/07/20 05:28 03/07/20 08:00 03/07/20 10:11 White Blood Count 7.4 10^3/uL 6.1 10^3/uL Red Blood Count 5.52 10^6/uL 5.17 10^6/uL Hemoglobin 16.3 g/dL 15.4 g/dL Hematocrit 45.9 % 43.1 % Mean Corpuscular Volume 83.2 fL 83.4 fL Mean Corpuscular Hemoglobin 29.5 pg 29.8 pg Mean Corpuscular Hemoglobin Concent 35.5 g/dL 35.7 g/dL Red Cell Distribution Width 11.8 % 11.8 % Platelet Count 200 10^3/uL 187 10^3/uL Mean Platelet Volume 11.0 fL 11.0 fL Neutrophils (%) (Auto) 66.9 % 62.8 % Lymphocytes (%) (Auto) 16.5 % 20.9 % Monocytes (%) (Auto) 14.6 % 14.7 % Neutrophils # (Auto) 5.0 10^3/uL 3.8 10^3/uL Lymphocytes # (Auto) 1.22 10^3/uL1 1.28 10^3/uL1 Monocytes # (Auto) 1.1 10^3/uL 0.9 10^3/uL Absolute Immature Granulocyte (auto 0.03 10^3 u/L 0.02 10^3 u/L Absolute Eosinophils (auto) 0.1 10^3/uL 0.1 10^3/uL Immature Granulocytes % 0.40 % 0.30 % Eosinophils % 1.2 % 0.8 % Basophils % 0.4 % 0.5 % Basophils # 0.0 10^3/uL 0.0 10^3/uL Sodium Level 138 mmol/L Potassium Level 4.1 mmol/L Chloride Level 101.0 mmol/L Carbon Dioxide Level 26.8 mmol/L Anion Gap 14.3 Blood Urea Nitrogen 12 mg/dL Creatinine 1.14 mg/dL Estimated GFR () 97.2 Est GFR (CKD-EPI)(Non-Afr Citizen Of [place]) 80.3 BUN/Creatinine Ratio 10.0 Glucose Level 128 mg/dL Calcium Level 9.4 mg/dL Total Bilirubin 0.7 mg/dL Aspartate Amino Transf (AST/SGOT) 33 U/L Alanine Aminotransferase (ALT/SGPT) 29 U/L Alkaline Phosphatase 76 U/L Total Creatine Kinase 160 U/L Creatine Kinase MB 9.2 ng/mL Troponin I 1.66 ng/mL 3.28 ng/mL Pro-B-Type Natriuretic Peptide 226 pg/mL Total Protein 7.2 g/dL Albumin 4.2 g/dL Globulin 3.0 Influenza Type A Antigen NEGATIVE Influenza B Immunofluorescence NEGATIVE Group A Streptococcus Screen NEGATIVE Activated Partial Thromboplast Time 34.4 SEC 50.5 SEC Test 03/07/20 15:07 03/07/20 20:10 03/08/20 00:43 03/08/20 05:45 Activated Partial Thromboplast Time 58.3 SEC 53.0 SEC 64.4 SEC 94.8 SEC White Blood Count 5.6 10^3/uL Red Blood Count 5.18 10^6/uL Hemoglobin 15.6 g/dL Hematocrit 44.7 % Mean Corpuscular Volume 86.3 fL Mean Corpuscular Hemoglobin 30.1 pg Mean Corpuscular Hemoglobin Concent 34.9 g/dL Red Cell Distribution Width 11.8 % Platelet Count 184 10^3/uL Mean Platelet Volume 11.2 fL Neutrophils (%) (Auto) 48.8 % Lymphocytes (%) (Auto) 34.8 % Monocytes (%) (Auto) 12.8 % Neutrophils # (Auto) 2.7 10^3/uL Lymphocytes # (Auto) 1.93 10^3/uL1 Monocytes # (Auto) 0.7 10^3/uL Absolute Immature Granulocyte (auto 0.02 10^3 u/L Absolute Eosinophils (auto) 0.1 10^3/uL Immature Granulocytes % 0.40 % Eosinophils % 2.5 % Basophils % 0.7 % Basophils # 0.0 10^3/uL Total Creatine Kinase 141 U/L Creatine Kinase MB 10.1 ng/mL Troponin I 2.82 ng/mL Current Medications Medications (Trade) Dose Ordered Sig/Татьяна PRN Reason Start Time Stop Time Status Last Admin Acetaminophen (Tylenol) 650 mg Q4H PRN PAIN 1 - 3 03/07/20 18:30 04/06/20 18:29 Famotidine (Pepcid) 20 mg BID 03/07/20 21:00 04/06/20 20:59 03/08/20 08:05 Heparin Sodium/ Dextrose 500 ml @ 0 mls/hr TITRATE 03/07/20 03:30 04/06/20 03:29 03/07/20 21:01 Morphine Sulfate (Morphine Sulfate) 2 mg Q4H PRN PAIN 4 - 6 03/07/20 11:00 04/06/20 10:59 03/08/20 06:07 Nitroglycerin (Nitrostat) 0.4 mg PRN PRN CHEST PAIN 03/07/20 13:00 04/06/20 12:59 03/08/20 05:54 Ondansetron HCl (Zofran) 4 mg Q4H PRN NAUSEA / VOMITING 03/07/20 18:30 04/06/20 18:29 Zolpidem Tartrate (Ambien) 5 mg HS PRN INSOMNIA 03/07/20 18:30 04/06/20 18:29 LEVEL 1 SEPSIS INFECTION CRITE: None/Not assessed O2 Sat by Pulse Oximetry: 99 Assessment/Plan Assessment/Plan Assessment/Plan Continue heparin gtt Awaiting COVID-19 test result LVEF 60-65% on echo with no evidence of wall motion abnormalities Troponins trending down ESR/CRP--negative No active chest pain at this time NSR on tele If COVID-19 test negative, will pursue [facility] Problems: (1) Chest pain Assessment & Plan: Improved will. His troponin trending down on the heparin drip. Continue current therapy for now. ICD Code: R07.9 - Chest pain, unspecified SNOMED: 67285899 (2) Elevated troponin Assessment & Plan: The patient being tested for the "good 19 virus infection. The results were not back yet. COVID infection the most likely cause for the elevated troponin but if it is not then he will have to have cardiac catheterization done. Cardiology consulted over and develop treatment plan Dr. Templeton ICD Code: R79.89 - Other specified abnormal findings of blood chemistry SNOMED: 999710732, [id number], [id number] (3) Diarrhea Assessment & Plan: Resolved for now. Advance his diet ICD Code: R19.7 - Diarrhea, unspecified SNOMED: 92239157 Plan Continue heparin gtt Awaiting COVID-19 test result LVEF 60-65% on echo with no evidence of wall motion abnormalities Troponins trending down ESR/CRP--negative No active chest pain at this time NSR on tele If COVID-19 test negative, will pursue [facility] EDWARD TREJO MD Mar 09, 2020 14:31
--- NOTE | 2020-03-09 15:10 | NUR ---
STATUS DR TALAMANTES NOTIFIED OF COVID TEST RESULTS STATES, "I WANT TO TAKE HIM TO THE [facility] AT 1600." [employer] NOTIFIED.
[2020-03-09] MEDS ORDERED: NS 1000ML 1,000 ML ONE (15:28)
[2020-03-09] MEDS ORDERED: HEPARIN ONE (15:28)
[2020-03-09] MEDS ORDERED: SUBLIMAZE ONE ×2 (15:28→15:53)
[2020-03-09] MEDS ORDERED: VERSED ONE ×2 (15:29→15:53)
[2020-03-09] MEDS ORDERED: XYLOCAINE ONE (15:29)
[2020-03-09] MEDS ORDERED: NITROGLYCERIN 25MG/D5W 250ML 250 ML IV ONE (15:35)
[2020-03-09] MEDS ORDERED: CARDENE-NACL 20 MG/200 ML SOLN 200 ML IV ONE (15:35)
--- NOTE | 2020-03-09 15:45 | NUR ---
STATUS CHG WIPES AND SHAVING COMPLETE AT THIS TIME. WILL CONT TO MONITOR. CALL LIGHT WITHIN REACH.
--- NOTE | 2020-03-09 15:50 | NUR ---
STATUS ORDER RECEIVED TO D/C PRECAUTIONS FOR COVID [address] TREJO, PT MOVED TO ROOM 332. WILL CONT TO MONITOR, CALL LIGHT WITHIN REACH
--- NOTE | 2020-03-09 16:00 | NUR ---
STATUS PT OFF OF UNIT VIA STRETCHER TO GO TO SENSOR OPERATOR REPORT GIVEN TO NANCY GOLDBERG
[2020-03-09 17:15] VITALS: BP 123/71
[2020-03-09] MEDS ORDERED: NS 1000ML 1,000 ML IV ONE (17:45)
[2020-03-09] MEDS ORDERED: PROTONIX PO SCH (18:00)
--- NOTE | 2020-03-09 18:28 | [facility] ---
DATE OF SERVICE: 03/09/2020 INDICATION FOR PROCEDURE: Elevated troponins. This is a 24-year-old male who presented to [facility] with symptoms of chest discomfort with associated nausea, vomiting and diarrhea. Initial troponin on presentation was 1.66 and slowly trended up with maximum troponin of 3.28. Given his presentation, he was tested for coronavirus COVID-19, which came back negative. He was then set up for cardiac catheterization to rule out an ischemic substrate. Informed consents were obtained and the patient was taken to the cardiac catheterization suite. PROCEDURES PERFORMED: 1. Selective coronary angiography. 2. Left ventriculography. 3. Hemostasis established using a 6-Serbian Mynx control. DESCRIPTION OF PROCEDURE: Access was obtained using a 4-Serbian micropuncture kit to cannulate the right common femoral artery. The 4-Serbian sheath was then upsized to a 6-Serbian regular short sheath. Diagnostic angiography was carried out using the Mick left catheter to engage the left main. Left main was noted to be angiographically normal. It bifurcates into left anterior descending artery and the left circumflex artery. The left anterior descending artery is noted to be normal with no evidence of disease. It runs in the interventricular groove to the apex to form a type 2 LAD. It gives off a very large caliber diagonal branch, which is also noted to be normal with no evidence of coronary artery disease. The left circumflex artery is noted to be nondominant and also normal with no evidence of coronary artery disease. It gives off 2 obtuse marginal branches, which are noted also to be normal. The Mick left catheter was then exchanged for a Mick right catheter, which was used to cross the aortic valve into the left ventricle. Left ventriculography was performed. LVEF was noted to be 65%. LVEDP was noted to be 12. Upon pullback of the catheter, there was no gradient across the aortic valve. Mick right catheter was then used to engage the RCA. The RCA was noted to be dominant and normal. There was no evidence of coronary artery disease. The RCA bifurcates in its mid portion with a very high bifurcation into an RPL and RPDA branch, both also noted to be normal. The Mick right catheter was then taken out and hemostasis was established using a 6-Serbian Mynx control. The patient left the shift lab technician in stable condition. There were no complications. IMPRESSION: 1. Normal coronaries. 2. Selective coronary angiography. 3. Left ventriculography. 4. LVEF of 65%. 5. LVEDP of 12. 6. Hemostasis established using a 6-Serbian Mynx control. RECOMMENDATIONS: This is a 24-year-old male who presented with elevated troponins and a max troponins of 3.28. Left heart catheterization revealed normal coronaries. I suspect his elevated troponin is likely secondary to myopericarditis. It is unclear what the etiology of this myopericarditis is. His COVID-19 test was negative, but that does not exclude the COVID-19 given the false negativity rate of the testing. There also may be idiopathic etiology to this process. I will go ahead and treat for myopericarditis. He will be started on ibuprofen 600 mg p.o. q. 8 hours for the next 2 weeks and then subsequently 200 mg of ibuprofen q. weekly for additional 2 weeks. He also will be started on Protonix 40 mg p.o. daily for gastric protection. I anticipate discharge in the morning with followup with Cardiology in the outpatient setting in 2 weeks. ENEIDA GO D.O. DR: [place]/kim JOB# [id number]
[2020-03-09] MEDS: MORPHINE SULFATE IV PRN (19:28)
[2020-03-09] MEDS: MOTRIN PO SCH (21:43)
[2020-03-10 04:20] VITALS: BP 111/69
[2020-03-10] MEDS: MOTRIN PO SCH (06:10)
[2020-03-10] MEDS ORDERED: PANT40TA3 PO (06:18)
[2020-03-10] MEDS ORDERED: IBUP-1129 PO (06:18)
--- NOTE | 2020-03-10 06:30 | PRM.DC ---
Discharge Summary Date of Discharge: Mar 10, 2020 Time of Request to Discharge: 06:22 Reason for Visit: Elevated troponin Hospital Course Due to the chest pain and elevated cardiac enzymes the patient placed on the potline monitor. Oxygen saturations monitored but he had no oxygen requirement. The patient placed on a heparin drip per protocol and the PTT monitored to keep appropriate levels. He had no bleeding complication. The patient's troponins were monitored and peaked at 3.8 but were decreasing at the time of discharge trending down. Due to the diarrhea patient suspected of having a viral pericarditis. There was concern that this may be the coronavirus. The coronavirus testing done and returned negative. When the test was negative the patient was taken to catheterization lab and he revealed no obstruction of any of the coronary arteries. The ejection fraction at 65 to 70% on the echocardiogram and he have no valvular heart disease. No significant pericardial effusion was seen. The patient had gradually decreasing chest pain or admission with minimal use of analgesics. He was given famotidine for GI protection. The patient seen in consultation by Dr. Templeton for the cardiology and catheterization. Problem 2: Chest pain: Secondary to pericarditis. Pain decreasing at time of admission but he will discharge home on ibuprofen as anti-inflammatory Problem 3: Diarrhea: Noticed at the time of admission but resolved in less than 24 hours. Because of the fast resolution no stool studies were sent. Additional Comments Consultations: Dr. Liset Templeton cardiology General: Alert, Oriented X3, Cooperative, No acute distress HEENT: Atraumatic, PERRLA, EOMI Neck: Supple, No JVD, +2 carotid pulse wo bruit Lungs: Clear to auscultation Heart: Regular rate, Normal S2 Abdomen: Normal bowel sounds, Soft, No tenderness, No hepatospenomegaly Extremities: No clubbing, No cyanosis, No edema, Normal pulses, No tenderness/swelling Skin: No rashes Neuro: Normal gait, Normal speech, Strength at 5/5 X4 ext, Normal tone, Cranial nerves 3-12 NL Psych/Mental Status: Mental status NL, Mood NL Procedures Left heart cardiac catheterization on 03/09/[address] Templeton Scheduled Ibuprofen (Ibuprofen), 600 MG PO Q8HR Pantoprazole Sodium (Protonix), 40 MG PO DAILY Sepsis Evaluation @ Discharge Vital Sign - Last 24 Hours 03/07/20 03/07/20 03/07/20/21/20 10:40 11:23 12:36 13:01 Temp 97.8 98.3 Pulse 68 89 76 Resp 16 16 18 B/P (MAP) 118/68 (85) 139/79 (99) 148/70 (96) Pulse Ox 96 100 98 O2 Delivery Room Air Room Air Room Air Room Air 03/07/20 03/07/20 03/08/20 03/08/20 16:02 20:12 00:44 02:35 Temp 97.8 98.0 98.0 Pulse 73 92 70 Resp 16 16 16 18 B/P (MAP) 148/84 (105) 118/71 (87) 113/72 (86) Pulse Ox 100 100 100 O2 Delivery Room Air Room Air Room Air Room Air 03/08/20 03/08/20 03/08/20 03/08/20 02:36 05:50 09:38 10:01 Temp 98.2 98.2 Pulse 98 81 Resp 18 16 B/P (MAP) 136/91 (106) 138/86 (103) Pulse Ox 96 96 O2 Delivery Room Air Room Air Room Air Intake and Output 03/08/20 07:00 Intake Total 1073 ml Balance 1073 ml Laboratory Tests Test 03/07/20 00:30 03/07/20 05:28 03/07/20 08:00 03/07/20 10:11 White Blood Count 7.4 10^3/uL 6.1 10^3/uL Red Blood Count 5.52 10^6/uL 5.17 10^6/uL Hemoglobin 16.3 g/dL 15.4 g/dL Hematocrit 45.9 % 43.1 % Mean Corpuscular Volume 83.2 fL 83.4 fL Mean Corpuscular Hemoglobin 29.5 pg 29.8 pg Mean Corpuscular Hemoglobin Concent 35.5 g/dL 35.7 g/dL Red Cell Distribution Width 11.8 % 11.8 % Platelet Count 200 10^3/uL 187 10^3/uL Mean Platelet Volume 11.0 fL 11.0 fL Neutrophils (%) (Auto) 66.9 % 62.8 % Lymphocytes (%) (Auto) 16.5 % 20.9 % Monocytes (%) (Auto) 14.6 % 14.7 % Neutrophils # (Auto) 5.0 10^3/uL 3.8 10^3/uL Lymphocytes # (Auto) 1.22 10^3/uL1 1.28 10^3/uL1 Monocytes # (Auto) 1.1 10^3/uL 0.9 10^3/uL Absolute Immature Granulocyte (auto 0.03 10^3 u/L 0.02 10^3 u/L Absolute Eosinophils (auto) 0.1 10^3/uL 0.1 10^3/uL Immature Granulocytes % 0.40 % 0.30 % Eosinophils % 1.2 % 0.8 % Basophils % 0.4 % 0.5 % Basophils # 0.0 10^3/uL 0.0 10^3/uL Sodium Level 138 mmol/L Potassium Level 4.1 mmol/L Chloride Level 101.0 mmol/L Carbon Dioxide Level 26.8 mmol/L Anion Gap 14.3 Blood Urea Nitrogen 12 mg/dL Creatinine 1.14 mg/dL Estimated GFR () 97.2 Est GFR (CKD-EPI)(Non-Afr [place]) 80.3 BUN/Creatinine Ratio 10.0 Glucose Level 128 mg/dL Calcium Level 9.4 mg/dL Total Bilirubin 0.7 mg/dL Aspartate Amino Transf (AST/SGOT) 33 U/L Alanine Aminotransferase (ALT/SGPT) 29 U/L Alkaline Phosphatase 76 U/L Total Creatine Kinase 160 U/L Creatine Kinase MB 9.2 ng/mL Troponin I 1.66 ng/mL 3.28 ng/mL Pro-B-Type Natriuretic Peptide 226 pg/mL Total Protein 7.2 g/dL Albumin 4.2 g/dL Globulin 3.0 Influenza Type A Antigen NEGATIVE Influenza B Immunofluorescence NEGATIVE Group A Streptococcus Screen NEGATIVE Activated Partial Thromboplast Time 34.4 SEC 50.5 SEC Test 03/07/20 15:07 03/07/20 20:10 03/08/20 00:43 03/08/20 05:45 Activated Partial Thromboplast Time 58.3 SEC 53.0 SEC 64.4 SEC 94.8 SEC White Blood Count 5.6 10^3/uL Red Blood Count 5.18 10^6/uL Hemoglobin 15.6 g/dL Hematocrit 44.7 % Mean Corpuscular Volume 86.3 fL Mean Corpuscular Hemoglobin 30.1 pg Mean Corpuscular Hemoglobin Concent 34.9 g/dL Red Cell Distribution Width 11.8 % Platelet Count 184 10^3/uL Mean Platelet Volume 11.2 fL Neutrophils (%) (Auto) 48.8 % Lymphocytes (%) (Auto) 34.8 % Monocytes (%) (Auto) 12.8 % Neutrophils # (Auto) 2.7 10^3/uL Lymphocytes # (Auto) 1.93 10^3/uL1 Monocytes # (Auto) 0.7 10^3/uL Absolute Immature Granulocyte (auto 0.02 10^3 u/L Absolute Eosinophils (auto) 0.1 10^3/uL Immature Granulocytes % 0.40 % Eosinophils % 2.5 % Basophils % 0.7 % Basophils # 0.0 10^3/uL Total Creatine Kinase 141 U/L Creatine Kinase MB 10.1 ng/mL Troponin I 2.82 ng/mL Current Medications Medications (Trade) Dose Ordered Sig/Татьяна PRN Reason Start Time Stop Time Status Last Admin Acetaminophen (Tylenol) 650 mg Q4H PRN PAIN 1 - 3 03/07/20 18:30 04/06/20 18:29 Famotidine (Pepcid) 20 mg BID 03/07/20 21:00 04/06/20 20:59 03/08/20 08:05 Heparin Sodium/ Dextrose 500 ml @ 0 mls/hr TITRATE 03/07/20 03:30 04/06/20 03:29 03/07/20 21:01 Morphine Sulfate (Morphine Sulfate) 2 mg Q4H PRN PAIN 4 - 6 03/07/20 11:00 04/06/20 10:59 03/08/20 06:07 Nitroglycerin (Nitrostat) 0.4 mg PRN PRN CHEST PAIN 03/07/20 13:00 04/06/20 12:59 03/08/20 05:54 Ondansetron HCl (Zofran) 4 mg Q4H PRN NAUSEA / VOMITING 03/07/20 18:30 04/06/20 18:29 Zolpidem Tartrate (Ambien) 5 mg HS PRN INSOMNIA 03/07/20 18:30 04/06/20 18:29 Course Sepsis Screening Results: Posi: NEGATIVE Sepsis Qualifier/Stage: NO DEFINITE RISK Duration or Total Time Spent w: 15 Vitals & review Data Vital Sign - Last 24 Hours 03/07/20 03/07/20 03/07/20 03/07/20 10:40 11:23 12:36 13:01 Temp 97.8 98.3 Pulse 68 89 76 Resp 16 16 18 B/P (MAP) 118/68 (85) 139/79 (99) 148/70 (96) Pulse Ox 96 100 98 O2 Delivery Room Air Room Air Room Air Room Air 03/07/20 03/07/20 03/08/20 03/08/20 16:02 20:12 00:44 02:35 Temp 97.8 98.0 98.0 Pulse 73 92 70 Resp 16 16 16 18 B/P (MAP) 148/84 (105) 118/71 (87) 113/72 (86) Pulse Ox 100 100 100 O2 Delivery Room Air Room Air Room Air Room Air 03/08/20 03/08/20 03/08/20 03/08/20 02:36 05:50 09:38 10:01 Temp 98.2 98.2 Pulse 98 81 Resp 18 16 B/P (MAP) 136/91 (106) 138/86 (103) Pulse Ox 96 96 O2 Delivery Room Air Room Air Room Air Intake and Output 03/08/20 07:00 Intake Total 1073 ml Balance 1073 ml Laboratory Tests Test 03/07/20 00:30 03/07/20 05:28 03/07/20 08:00 03/07/20 10:11 White Blood Count 7.4 10^3/uL 6.1 10^3/uL Red Blood Count 5.52 10^6/uL 5.17 10^6/uL Hemoglobin 16.3 g/dL 15.4 g/dL Hematocrit 45.9 % 43.1 % Mean Corpuscular Volume 83.2 fL 83.4 fL Mean Corpuscular Hemoglobin 29.5 pg 29.8 pg Mean Corpuscular Hemoglobin Concent 35.5 g/dL 35.7 g/dL Red Cell Distribution Width 11.8 % 11.8 % Platelet Count 200 10^3/uL 187 10^3/uL Mean Platelet Volume 11.0 fL 11.0 fL Neutrophils (%) (Auto) 66.9 % 62.8 % Lymphocytes (%) (Auto) 16.5 % 20.9 % Monocytes (%) (Auto) 14.6 % 14.7 % Neutrophils # (Auto) 5.0 10^3/uL 3.8 10^3/uL Lymphocytes # (Auto) 1.22 10^3/uL1 1.28 10^3/uL1 Monocytes # (Auto) 1.1 10^3/uL 0.9 10^3/uL Absolute Immature Granulocyte (auto 0.03 10^3 u/L 0.02 10^3 u/L Absolute Eosinophils (auto) 0.1 10^3/uL 0.1 10^3/uL Immature Granulocytes % 0.40 % 0.30 % Eosinophils % 1.2 % 0.8 % Basophils % 0.4 % 0.5 % Basophils # 0.0 10^3/uL 0.0 10^3/uL Sodium Level 138 mmol/L Potassium Level 4.1 mmol/L Chloride Level 101.0 mmol/L Carbon Dioxide Level 26.8 mmol/L Anion Gap 14.3 Blood Urea Nitrogen 12 mg/dL Creatinine 1.14 mg/dL Estimated GFR () 97.2 Est GFR (CKD-EPI)(Non-Afr [place]) 80.3 BUN/Creatinine Ratio 10.0 Glucose Level 128 mg/dL Calcium Level 9.4 mg/dL Total Bilirubin 0.7 mg/dL Aspartate Amino Transf (AST/SGOT) 33 U/L Alanine Aminotransferase (ALT/SGPT) 29 U/L Alkaline Phosphatase 76 U/L Total Creatine Kinase 160 U/L Creatine Kinase MB 9.2 ng/mL Troponin I 1.66 ng/mL 3.28 ng/mL Pro-B-Type Natriuretic Peptide 226 pg/mL Total Protein 7.2 g/dL Albumin 4.2 g/dL Globulin 3.0 Influenza Type A Antigen NEGATIVE Influenza B Immunofluorescence NEGATIVE Group A Streptococcus Screen NEGATIVE Activated Partial Thromboplast Time 34.4 SEC 50.5 SEC Test 03/07/20 15:07 03/07/20 20:10 03/08/20 00:43 03/08/20 05:45 Activated Partial Thromboplast Time 58.3 SEC 53.0 SEC 64.4 SEC 94.8 SEC White Blood Count 5.6 10^3/uL Red Blood Count 5.18 10^6/uL Hemoglobin 15.6 g/dL Hematocrit 44.7 % Mean Corpuscular Volume 86.3 fL Mean Corpuscular Hemoglobin 30.1 pg Mean Corpuscular Hemoglobin Concent 34.9 g/dL Red Cell Distribution Width 11.8 % Platelet Count 184 10^3/uL Mean Platelet Volume 11.2 fL Neutrophils (%) (Auto) 48.8 % Lymphocytes (%) (Auto) 34.8 % Monocytes (%) (Auto) 12.8 % Neutrophils # (Auto) 2.7 10^3/uL Lymphocytes # (Auto) 1.93 10^3/uL1 Monocytes # (Auto) 0.7 10^3/uL Absolute Immature Granulocyte (auto 0.02 10^3 u/L Absolute Eosinophils (auto) 0.1 10^3/uL Immature Granulocytes % 0.40 % Eosinophils % 2.5 % Basophils % 0.7 % Basophils # 0.0 10^3/uL Total Creatine Kinase 141 U/L Creatine Kinase MB 10.1 ng/mL Troponin I 2.82 ng/mL Current Medications Medications (Trade) Dose Ordered Sig/Татьяна PRN Reason Start Time Stop Time Status Last Admin Acetaminophen (Tylenol) 650 mg Q4H PRN PAIN 1 - 3 03/07/20 18:30 04/06/20 18:29 Famotidine (Pepcid) 20 mg BID 03/07/20 21:00 04/06/20 20:59 03/08/20 08:05 Heparin Sodium/ Dextrose 500 ml @ 0 mls/hr TITRATE 03/07/20 03:30 04/06/20 03:29 03/07/20 21:01 Morphine Sulfate (Morphine Sulfate) 2 mg Q4H PRN PAIN 4 - 6 03/07/20 11:00 04/06/20 10:59 03/08/20 06:07 Nitroglycerin (Nitrostat) 0.4 mg PRN PRN CHEST PAIN 03/07/20 13:00 04/06/20 12:59 03/08/20 05:54 Ondansetron HCl (Zofran) 4 mg Q4H PRN NAUSEA / VOMITING 03/07/20 18:30 04/06/20 18:29 Zolpidem Tartrate (Ambien) 5 mg HS PRN INSOMNIA 03/07/20 18:30 04/06/20 18:29 LEVEL 1 SEPSIS INFECTION CRITE: Recent Invasive Procedure O2 Sat by Pulse Oximetry: 98 Plan Problems: (1) Pericarditis ICD Code: I31.9 - Disease of pericardium, unspecified SNOMED: 1299740 (2) Chest pain ICD Code: R07.9 - Chest pain, unspecified SNOMED: 01283355 (3) Elevated troponin ICD Code: R79.89 - Other specified abnormal findings of blood chemistry SNOMED: 334768290, 520028623, 822142292 (4) Diarrhea ICD Code: R19.7 - Diarrhea, unspecified SNOMED: 05721294 Discharge Date: Mar 10, 2020 Discharge Disposition: Stable Plan . Discharge home and regular diet. Activity: No restrictions Follow Dr. Templeton cardiology in 2 weeks Take medications as prescribed. EDWARD TREJO MD Mar 10, 2020 06:30
[2020-03-10 07:12] VITALS: BP 121/66
[2020-03-10 09:00] VITALS: BP 121/66
--- NOTE | 2020-03-10 09:23 | NUR ---
DISCHARGE DISCHARGE TEACHING PROVIDED AT THIS TIME. MAKE A FOLLOW UP APPOINTMENT IN 2 WEEK WITH . PATIENT STATED HE IS MOVING TO [place], [place] AND WILL FOLLOW UP WITH A NEW [employer]ENE[employer] TRIMMER THERE. EDUCATION R/T PROTONIX, IBUPROFEN TO BE TAKEN. IV DISCONTINUED AT THIS TIME. CATHETER INTACT PATIENT TOLERATED WELL. ASSISTED PATIENT VIA WHEELCHAIR TO AUT[employer]BILE WITH [employer] TO TRANSPORT PATIENT HOME.
== END 2020-03-10 08:39 | disposition home or self-care (01) | DRG 287 ==
LOC: ER 23:30 → MS 03-07 02:55 → UNDODISIN 03-09 08:35 → MS 03-09 15:45
PROVIDERS: ADMIT Family Medicine; ATTEND Family Medicine
PROC: 4A023N7 Measurement of Cardiac Sampling and Pressure, Left Heart, Percutaneous Approach (ICD-10-PCS; principal; 2020-03-07)
PROC: B2111ZZ Fluoroscopy of Multiple Coronary Arteries using Low Osmolar Contrast (ICD-10-PCS; 2020-03-07)
PROC: B2151ZZ Fluoroscopy of Left Heart using Low Osmolar Contrast (ICD-10-PCS; 2020-03-07)
DX: I30.1 Infective pericarditis (principal); R19.7 Diarrhea, unspecified; R79.89 Other specified abnormal findings of blood chemistry; Z20.828 Contact with and (suspected) exposure to other viral communicable diseases
CPT/HCPCS: 36415; 71045; 71275; 80053; 80307; 82550; 82553; 83880; 84484; 85025; 85610; 85651; 85730; 86140; 87070; 87635; 87804; 87880; 93005; 93306; 93458; 99152; 99153; 99285; C1760; C1769; C1887; C1894; G0378; J1644; J1885; J2250; J3010; J3490; J7030; Q9967

== ENCOUNTER → 2022-05-10 | Outpatient (CLI) | payer OTHER ==
[~2022-05-10] MED LIST: IBUP-1129 PO; PANT40TA3 PO
== END | disposition home or self-care (01) ==
LOC: NPLAB 15:32
PROVIDERS: ATTEND Nurse Practitioner Family
DX: R10.9 Unspecified abdominal pain (principal); N12 Tubulo-interstitial nephritis, not specified as acute or chronic
CPT/HCPCS: 87086

== ENCOUNTER → 2022-05-14 | Outpatient (CLI) | payer OTHER ==
--- NOTE | 2022-05-14 13:39 | DIREP ---
PROCEDURE:CT ABDOMEN/PELVIS W/O CONTRAST COMPARISON:[facility], CT, CTA CHEST, 03/07/2020, 01:43 AM. INDICATIONS:R10.9 UNSPECIFIED ABDOMINAL PAIN TECHNIQUE:Axial images were created through the abdomen and pelvis without intravenous contrast material. No oral contrast was administered. Sagittal and coronal reconstructions were performed from source images. FINDINGS: LUNG BASES:Normal. No visible pulmonary or pleural disease. LIVER:Normal. No significant liver lesions are identified. BILIARY:Normal. No visible dilatation or calcification. PANCREAS:Normal. No lesion, fluid collection, ductal dilatation, or atrophy. SPLEEN:Normal. No enlargement or focal lesion. ADRENALS:Normal. No mass or enlargement. URINARY TRACT:Normal. No urinary calculi. No focal lesions or hydronephrosis. AORTA/VASCULAR:Normal. No aneurysm. RETROPERITONEUM:Normal. No mass or adenopathy. BOWEL/MESENTERY:The appendix is visualized and appears normal. There is no intestinal obstruction, free fluid, free air or mesenteric inflammatory changes. ABDOMINAL WALL:Normal. No mass or hernia. PELVIC ORGANS:Normal. No visible mass. Pelvic organs appropriate for patient age. BONES:Normal for age. No bony lesion or acute fracture. OTHER:Negative. CONCLUSION:Normal examination. Dictated by: Lul Barrow M.D. on 05/14/2022 at 01:34 PM
== END | disposition home or self-care (01) ==
LOC: RAD 12:53
PROVIDERS: ATTEND Nurse Practitioner Family
DX: R10.9 Unspecified abdominal pain (principal)
CPT/HCPCS: 74176